=== PATIENT | female | born 1965 ===

== ENCOUNTER 2018-12-12 00:11 | Emergency (ER) | payer OTHER ==
[~2018-12-12] VITALS: Ht 167.6 cm; Wt 66.2 kg
--- NOTE | 2018-12-12 00:13 | NUR ---
PT BIBS. C/O "SEEKING VOLUNTARY ADMISSION TO [facility]" AOX4. VSS. AMBULATORY -SOB NOTED.
--- NOTE | 2018-12-12 01:00 | NUR ---
PT MEDICALLY CLEARED FOR VOLUNTARY ADMISSION.
--- NOTE | 2018-12-12 01:34 | NUR ---
Note quentin in ED - 12/12/18 at 0334 by YOLIS JOE ESTRADA PAGED. NO RESPONSE. WILL PAGE AGAIN SOON
[2018-12-12 01:50] LABS: APPEARANCE,URINE Clear (CLEAR); BILIRUBIN,URINE Negative (NEGATIVE); BLOOD, URINE Trace-intact Ery/uL (NEGATIVE); KETONES,URINE Negative (NEGATIVE); LEUKOCYTE ESTERASE ,URINE Negative (NEGATIVE); NITRITE, URINE Negative (NEGATIVE); PH,URINE 5.5 (5.0-8.0); PROTEIN,URINE Negative (NEGATIVE); UGLUCOSE Negative (NEGATIVE); UROBILINOGEN,URINE 0.2 EU/dL (0.2)
--- NOTE | 2018-12-12 01:50 | NUR ---
Note quentin in ED - 12/12/18 at 0334 by YOLIS NOIM DIAZ LCSW AGAIN. NO RESPONSE. WILL CALL SHAUNA GRIDER.
[2018-12-12 01:52] LABS: BASOPHILS % (AUTO) 0.4 % (0.0-2.0); EOSINOPHILS % (AUTO) 1.4 % (0.0-6.0); HEMATOCRIT 39 % (33-45); HEMOGLOBIN 13.3 g/dL (11.5-14.8); LYMPHOCYTES # (AUTO) 2.5 /CMM (0.8-4.8); LYMPHOCYTES % (AUTO) 23.7 % (20.0-44.0); MEAN CORPUSCULAR HGB CONC 34 g/dl (31.0-36.0); MEAN CORPUSCULAR VOLUME 80 fL (82-100); MONOCYTES # (AUTO) 0.8 /CMM (0.1-1.30); MONOCYTES % (AUTO) 7.8 % (2.0-12.0); NEUTROPHILS # (AUTO) 6.9 /CMM (1.8-8.9); NEUTROPHILS % (AUTO) 66.7 % (43.0-81.0); PLATELET COUNT (AUTO) 378 /CMM (150-450); RED BLOOD CELL COUNT(AUTO) 4.87 MIL/uL (4.0-5.2); WHITE BLOOD COUNT (AUTO) 10.4 K/uL (4.3-11.0)
--- NOTE | 2018-12-12 02:00 | NUR ---
INFORMATION FAXED TO KATTY ANDINO.
[2018-12-12 02:01] LABS: CALCIUM, SERUM 9.8 mg/dL (8.5-10.1); CARBON DIOXIDE 30 mmol/L (21-32); CHLORIDE 100 mmol/L (98-107); GLUCOSE 95 mg/dL (74-106); POTASSIUM 2.9 mmol/L (3.5-5.1); SODIUM SERUM 140 mmol/L (136-145); UREA NITROGEN, BLOOD 16 mg/dL (7-18)
--- NOTE | 2018-12-12 02:01 | NUR ---
Note quentin in EDM - 12/12/18 at 0334 by YOLIS SHAUNA GRIDER CALLED JOE, ART AND ANJU FOR PSYCH EVAL. AWAITING RESPONSE.
[2018-12-12 02:13] LABS: ALANINE AMINOTRANSFERASE 21 U/L (12-78); ALBUMIN 4.2 g/dL (3.4-5.0); ALCOHOL, BLOOD < 3 mg/dL (0-0); ALKALINE PHOSPHATASE 132 U/L (46-116); ASPARTATE AMINOTRANSFERASE 22 U/L (15-37); BILIRUBIN,DIRECT 0.2 mg/dL (0.0-0.2); BILIRUBIN,TOTAL 0.6 mg/dL (0.2-1.0); SALICYLATE 3.8 mg/dL (2.8-20.0); TOTAL PROTEIN, SERUM 8.5 g/dL (6.4-8.2)
[2018-12-12 02:16] LABS: COLOR,URINE DARK YELLOW (YELLOW)
[2018-12-12 02:18] LABS: BACTERIA,URINE Moderate /HPF (None Seen); MUCUS,URINE Few /LPF (None Seen); SQUAMOUS EPITHELIAL CELL,UR Moderate /HPF (None Seen); WBC,URINE 0-2 /HPF (0-3)
[2018-12-12 02:19] LABS: YEAST,URINE Many /HPF (None Seen)
[2018-12-12 02:25] LABS: ACETAMINOPHEN 0 ug/ml (10-30)
[2018-12-12] MEDS ORDERED: POTASSIUM CHLORIDE 20 MEQ TAB.PRT.SR PO ONE ×3 (02:30)
--- NOTE | 2018-12-12 03:34 | NUR ---
Note quentin in ED - 12/12/18 at 0334 by YOLIS ART LOAD TEST MECHANIC ADVISING PT STAY HERE AND BE SEEN IN THE AM. AWARE
--- NOTE | 2018-12-12 04:25 | NUR ---
KATTY DORMAN INTAKE TRYING TO FIND AVAILABLE BEDS. WILL CALL BACK WITH UPDATES.
[2018-12-12 05:04] LABS: CALCIUM, SERUM 9.7 mg/dL (8.5-10.1); CREATININE 0.9 mg/dL (0.6-1.3); POTASSIUM 3.3 mmol/L (3.5-5.1)
--- NOTE | 2018-12-12 05:25 | NUR ---
PT ACCEPTED AT [facility]. ADMITTING MD: DR. DREW TEL: [phone] ADDRESS: [address] [place] [address]
--- NOTE | 2018-12-12 06:23 | NUR ---
REPORT GIVEN TO MARIELLA GARY. AMBULANCE ETA [id number].
--- NOTE | 2018-12-12 06:24 | NUR ---
TRIP NUMBER:[id number]
--- NOTE | 2018-12-12 08:02 | NUR ---
PROVIDED W BREAKFAST TRAY, TOLERATING PO WELL
[2018-12-12 08:18] VITALS: BP 103/60
--- NOTE | 2018-12-12 08:32 | NUR ---
Patient picked-up by [facility] in stable condition going to [facility]. Written and verbal after care instructions given. Patient verbalizes understanding of instruction.
== END 2018-12-12 08:33 ==
LOC: ER 00:17
DX: R45.851 Suicidal ideations (principal); F19.10 Other psychoactive substance abuse, uncomplicated; E87.6 Hypokalemia
CPT/HCPCS: 36415; 80048 ×2; 80076; 80305; 80307; 80329; 81001; 85025; 87086; 99285; G0480; 81000-TC